=== PATIENT | female | born 1980 | race Caucasian/White ===

== ENCOUNTER 2017-02-25 04:46 | Observation (INO) ==
--- NOTE | 2017-02-25 05:11 | Emergency Department Note ---
Disposition Clinical Impression: CHF (congestive heart failure) Qualifiers: Congestive heart failure type: unspecified Congestive heart failure chronicity : acute on chronic Qualified Code(s): I50.9 - Heart failure, unspecified Disposition: Admitted As Inpatient Condition: Fair Referrals: NONE,PCP [Primary Care Provider] - Forms: ED Satisfaction Letter, Work/School Release Time of Disposition: 06:17 General Adult HPI - General Chief complaint: ED General Medical Stated complaint: sob,nausea,abdominal pain Time Seen by Provider: 02/25/17 04:55 Source: patient Limitations: no limitations Nursing Notes Reviewed: Yes Vital Signs Reviewed: Yes - History of Present Illness HPI Narrative: Alert and oriented nontoxic-appearing 36-year-old female with a history of hypertension and congestive heart failure presents for multiple complaints. She complains of gradually increasing shortness of breath, right flank/right lateral and anterior rib cage pain, and nausea and vomiting up until 2 days ago. She denies any fever, chills, chest pain, pain with inspiration, hemoptysis, urinary symptoms. She does complain of progressively worsening bilateral lower extremity edema. She does complain of increasing orthopnea as well. Onset (ago): week(s) (2) Location: chest, abdomen Pain Severity: moderate Pain Scale: 4 Quality: aching Consistency: now resolved Improves with: nothing Worsens with: nothing Associated symptoms: Reports: nausea/vomiting. Denies: chest pain, cough, diaphoresis, fever/chills, syncope, weakness Treatments Prior to Arrival: none - Related Data Home Medications Medication Instructions Recorded Confirmed Ibuprofen [Motrin] 400 - 600 mg PO HS PRN 11/06/15 11/06/15 Previous Rx's Medication Instructions Recorded Acetaminophen [Tylenol] 650 mg PO Q6HR PRN #0 tablet 11/15/15 Lisinopril [Zestril] 40 mg PO DAILY #30 tablet 11/15/15 amLODIPine [Norvasc] 10 mg PO DAILY #30 tablet 11/15/15 Allergies Allergy/AdvReac Type Severity Reaction Status Date / Time No Known Allergies Allergy Verified 11/06/15 08:45 All systems ED: reviewed and negative except as stated. Constitutional: Denies: fever, chills, weakness, weight change Eyes: Denies: eye pain, eye discharge, vision change ENT ED: Denies: ear pain, throat pain, dental pain, hearing loss, epistaxis, congestion, dysphagia Cardiovascular: Reports: as per HPI, edema. Denies: chest pain, palpitations, dyspnea on exertion, syncope Respiratory: Reports: as per HPI, dyspnea. Denies: cough, wheezes, hemoptysis, stridor, sputum production Gastrointestinal: Reports: as per HPI, abdominal pain, nausea, vomiting. Denies : diarrhea, constipation, hematemesis, melena, hematochezia Genitourinary: Denies: dysuria, frequency, hematuria, discharge Musculoskeletal: Denies: back pain, neck pain, arthralgia, myalgia Integumentary: Denies: rash, abrasion, lesions Neurological: Denies: headache, weakness, numbness, paresthesias, confusion, abnormal gait, vertigo Psychiatric: Denies: anxiety, depression, suicidal thoughts, homicidal thoughts , auditory hallucinations, visual hallucinations Endocrine: Denies: fatigue Hematological/Lymphatic: Denies: easy bleeding, easy bruising Allergic/Immunologic: Denies: facial swelling, urticaria Past Medical History - Past Medical History Attestation: Yes The following information was validated with the patient. Source: patient, nursing notes reviewed Medical history: Reports: CHF, hypertension Surgical history: Reports: non-contributory Psychiatric history: Reports: no psych history BANK TELLER history: Reports: bilateral tubal ligation - Social History Smoking Status: Never smoker Smokeless Tobacco Status: No Alcohol use: Reports: none Drug use: Reports: none Physical Exam - General Limitations: no limitations General appearance: alert, in no apparent distress - Head Head exam: atraumatic, normocephalic, normal inspection - Eye Eye exam: Present: normal appearance, PERRL, EOMI. Absent: nystagmus - ENT ENT exam: mucous membranes moist - Neck Neck exam: Present: normal inspection, full ROM, trachea midline. Absent: lymphadenopathy - Chest Chest inspection: Present: symmetric chest wall rise, tenderness (Tenderness with palpation of the right lateral and right anterior chest wall) - Respiratory Respiratory exam: Present: normal lung sounds bilaterally. Absent: respiratory distress, wheezes, stridor, accessory muscle use, prolonged expiratory phase - Cardiovascular Cardiovascular exam: Present: regular rate, normal rhythm, normal heart sounds - Abdominal Exam Abdominal exam: Present: soft, tenderness, normal bowel sounds. Absent: distention, guarding, rebound, rigidity Abdominal tenderness: Present: RUQ, epigastrium, mild - Extremities Exam Extremities exam: Present: full ROM, pedal edema (2+ pretibial edema noted bilaterally). 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 No fever/chills, URI symptoms or leg pain. No known HX of DVT or PE. Denies . No recent travel. Has had an intermittent dry cough without hemoptysis. On exam patient does not appear to be in distress and is able to speak in complete sentences. She has a diffuse, significant psoriatic appearing rash, 1+ non-pitting peripheral edema, coarse rhonchi in bilateral bases, distant heart sounds - unable to hear a murmur, obese non-tender abdomen, normal neuro exam. Labs show significant proteinuria, microscopic hematuria, but normal creatinine and GFR. CBC normal. Dimer very elevated, >1000, TNI mildly elevated 0.04, and BNP >700. Xray read not very helpful - possible artifact, possible infiltrate, definite CM. Appears unchanged compared to previous to vt. EKG shows sinus tach with non-specific ST and T wave changes. CTA ordered. CTA shows no PE. Patient's BP is slowly coming down - NTG paste and lasix were given. She has ambulated to and from restroom twice without assistance or complication. No c/o pain at this time. All questions answered. Case discussed with Dr. Middleton. He has examined the patient, reviewed the lab, ecg and cxr findings and agrees with the plan to do CTA and admit. Patient agreeable to stay. Home dose of Lisinopril ordered. Patient accepted by Hospitalist. Vital Signs Temperature 97.9 F 02/25/17 04:47 Pulse Rate 115 02/25/17 04:47 Respiratory Rate 24 02/25/17 04:47 Blood Pressure 214/148 02/25/17 04:47 O2 Sat by Pulse Oximetry 96 02/25/17 04:47 Temperature 97.9 F 02/25/17 04:47 Pulse Rate 109 02/25/17 07:00 Respiratory Rate 18 02/25/17 07:00 Blood Pressure 168/117 02/25/17 07:00 O2 Sat by Pulse Oximetry 97 02/25/17 07:00 Oxygen Delivery Oxygen Delivery Room Air Medical Decision Making - Medical Records Medical records reviewed: Yes I reviewed the patient's medical records. - Lab Data Result diagrams: 02/25/17 05:38 02/25/17 05:38 Lab Results 02/25/17 02/25/17 02/25/17 Range/Units 05:21 05:21 05:38 WBC 9.9 (4.3-11.1) K/mcL RBC 5.00 H (3.82-4.97) M/mcL Hgb 13.6 (11.5-15.4) g/dL Hct 42.5 (35.3-44.9) % MCV 85.0 (83.0-100.0) fL MCH 27.2 L (28.0-33.3) pg MCHC 32.0 (31.6-35.5) g/dL RDW 16.2 H (11.5-14.5) % Plt Count 307 (140-400) K/mcL MPV 11.2 (9.4-12.4) fL Immature Gran % 0.4 (0-4) % Seg Neutrophils % 75.6 % Lymphocytes % 17.8 % Monocytes % 5.5 % Eosinophils % 0.2 % Basophils % 0.5 % Neutrophils # 7.5 (1.6-8.9) K/mcL Lymphocytes # 1.8 (0.6-4.6) K/mcL Monocytes # 0.6 (0.0-1.3) K/mcL Eosinophils # 0.0 (0.0-0.6) K/mcL Basophils # 0.1 (0.0-0.2) K/mcL PT (9.4-12.1) Seconds INR APTT (26.0-36.0) Seconds D-Dimer (0-500) ng/mLFEU Sodium (136-145) mEq/L Potassium (3.5-5.1) mEq/L Chloride (98-107) mEq/L Carbon Dioxide (23-29) mEq/L BUN (6-20) mg/dL Creatinine (0.60-1.20) mg/dL Est GFR ( Amer) (> 60) Est GFR (Non-Af Amer) (> 60) BUN/Creatinine Ratio (6-26) Glucose (70-105) mg/dL Calculated Osmolality (280-300) Lactic Acid (0.5-2.2) mmol/L Calcium (8.6-10.3) mg/dL Total Bilirubin (0.3-1.0) mg/dL Direct Bilirubin (0.0-0.2) mg/dL Indirect Bilirubin (0.0-1.2) mg/dL AST (13-39) Units/L ALT (7-52) Units/L Alkaline Phosphatase (34-104) Units/L Troponin I (< 0.04) ng/mL B-Natriuretic Peptide (Less than 100) pg/mL Serum Total Protein (6.4-8.9) g/dL Albumin (3.5-5.7) g/dL Globulin (2.4-3.5) g/dL Albumin/Globulin Ratio (1.1-2.2) Amylase (29-103) Units/L Lipase (11-82) Units/L Urine Color Yellow (Yellow) Urine Clarity Slightly Hazy (Clear) Urine pH 6.0 (5.0-8.0) pH Units Ur Specific Blackwood > 1.030 H (1.010-1.025) Urine Protein >=1000 H (Neg-Trace) mg/dL Urine Glucose (UA) Normal (Normal) mg/dL Urine Ketones Negative (Negative) mg/dL Urine Blood Large H (Negative) Urine Nitrite Negative (Negative) Urine Bilirubin Negative (Negative) Urine Urobilinogen Normal (Normal) mg/dL Ur Leukocyte Esterase Negative (Negative) Urine Microscopic RBC 30-50 H (0-3) per hpf Urine Microscopic WBC 5-15 H (0-3) per hpf Ur Squamous Epith Cells Many H (None-Few) per lpf Urine Bacteria Few (None-Few) per hpf Hyaline Casts Moderate H (None-Few) per lpf Urine Mucus Few (Few) Ur Culture Indicated? NO (NO) Urine Test Negative (Negative) 02/25/17 02/25/17 02/25/17 Range/Units 05:38 05:38 05:38 WBC (4.3-11.1) K/mcL RBC (3.82-4.97) M/mcL Hgb (11.5-15.4) g/dL Hct (35.3-44.9) % MCV (83.0-100.0) fL MCH (28.0-33.3) pg MCHC (31.6-35.5) g/dL RDW (11.5-14.5) % Plt Count (140-400) K/mcL MPV (9.4-12.4) fL Immature Gran % (0-4) % Seg Neutrophils % % Lymphocytes % % Monocytes % % Eosinophils % % Basophils % % Neutrophils # (1.6-8.9) K/mcL Lymphocytes # (0.6-4.6) K/mcL Monocytes # (0.0-1.3) K/mcL Eosinophils # (0.0-0.6) K/mcL Basophils # (0.0-0.2) K/mcL PT 13.4 H (9.4-12.1) Seconds INR 1.2 APTT 28.4 (26.0-36.0) Seconds D-Dimer 1145 H (0-500) ng/mLFEU Sodium 136 (136-145) mEq/L Potassium 4.5 (3.5-5.1) mEq/L Chloride 105 (98-107) mEq/L Carbon Dioxide 21 L (23-29) mEq/L BUN 27 H (6-20) mg/dL Creatinine 0.93 (0.60-1.20) mg/dL Est GFR ( Amer) > 60 (> 60) Est GFR (Non-Af Amer) > 60 (> 60) BUN/Creatinine Ratio 29 H (6-26) Glucose 109 H (70-105) mg/dL Calculated Osmolality 288 (280-300) Lactic Acid 1.5 (0.5-2.2) mmol/L Calcium 9.6 (8.6-10.3) mg/dL Total Bilirubin 0.9 (0.3-1.0) mg/dL Direct Bilirubin 0.2 (0.0-0.2) mg/dL Indirect Bilirubin 0.7 (0.0-1.2) mg/dL AST 12 L (13-39) Units/L ALT 10 (7-52) Units/L Alkaline Phosphatase 83 (34-104) Units/L Troponin I (< 0.04) ng/mL B-Natriuretic Peptide (Less than 100) pg/mL Serum Total Protein 6.7 (6.4-8.9) g/dL Albumin 4.0 (3.5-5.7) g/dL Globulin 2.7 (2.4-3.5) g/dL Albumin/Globulin Ratio 1.5 (1.1-2.2) Amylase 17 L (29-103) Units/L Lipase 24 (11-82) Units/L Urine Color (Yellow) Urine Clarity (Clear) Urine pH (5.0-8.0) pH Units Ur Specific Blackwood (1.010-1.025) Urine Protein (Neg-Trace) mg/dL Urine Glucose (UA) (Normal) mg/dL Urine Ketones (Negative) mg/dL Urine Blood (Negative) Urine Nitrite (Negative) Urine Bilirubin (Negative) Urine Urobilinogen (Normal) mg/dL Ur Leukocyte Esterase (Negative) Urine Microscopic RBC (0-3) per hpf Urine Microscopic WBC (0-3) per hpf Ur Squamous Epith Cells (None-Few) per lpf Urine Bacteria (None-Few) per hpf Hyaline Casts (None-Few) per lpf Urine Mucus (Few) Ur Culture Indicated? (NO) Urine Test (Negative) 02/25/17 02/25/17 Range/Units 05:38 05:38 WBC (4.3-11.1) K/mcL RBC (3.82-4.97) M/mcL Hgb (11.5-15.4) g/dL Hct (35.3-44.9) % MCV (83.0-100.0) fL MCH (28.0-33.3) pg MCHC (31.6-35.5) g/dL RDW (11.5-14.5) % Plt Count (140-400) K/mcL MPV (9.4-12.4) fL Immature Gran % (0-4) % Seg Neutrophils % % Lymphocytes % % Monocytes % % Eosinophils % % Basophils % % Neutrophils # (1.6-8.9) K/mcL Lymphocytes # (0.6-4.6) K/mcL Monocytes # (0.0-1.3) K/mcL Eosinophils # (0.0-0.6) K/mcL Basophils # (0.0-0.2) K/mcL PT (9.4-12.1) Seconds INR APTT (26.0-36.0) Seconds D-Dimer (0-500) ng/mLFEU Sodium (136-145) mEq/L Potassium (3.5-5.1) mEq/L Chloride (98-107) mEq/L Carbon Dioxide (23-29) mEq/L BUN (6-20) mg/dL Creatinine (0.60-1.20) mg/dL Est GFR ( Amer) (> 60) Est GFR (Non-Af Amer) (> 60) BUN/Creatinine Ratio (6-26) Glucose (70-105) mg/dL Calculated Osmolality (280-300) Lactic Acid (0.5-2.2) mmol/L Calcium (8.6-10.3) mg/dL Total Bilirubin (0.3-1.0) mg/dL Direct Bilirubin (0.0-0.2) mg/dL Indirect Bilirubin (0.0-1.2) mg/dL AST (13-39) Units/L ALT (7-52) Units/L Alkaline Phosphatase (34-104) Units/L Troponin I 0.04 H* (< 0.04) ng/mL B-Natriuretic Peptide 773 H (Less than 100) pg/mL Serum Total Protein (6.4-8.9) g/dL Albumin (3.5-5.7) g/dL Globulin (2.4-3.5) g/dL Albumin/Globulin Ratio (1.1-2.2) Amylase (29-103) Units/L Lipase (11-82) Units/L Urine Color (Yellow) Urine Clarity (Clear) Urine pH (5.0-8.0) pH Units Ur Specific [place]wood (1.010-1.025) Urine Protein (Neg-Trace) mg/dL Urine Glucose (UA) (Normal) mg/dL Urine Ketones (Negative) mg/dL Urine Blood (Negative) Urine Nitrite (Negative) Urine Bilirubin (Negative) Urine Urobilinogen (Normal) mg/dL Ur Leukocyte Esterase (Negative) Urine Microscopic RBC (0-3) per hpf Urine Microscopic WBC (0-3) per hpf Ur Squamous Epith Cells (None-Few) per lpf Urine Bacteria (None-Few) per hpf Hyaline Casts (None-Few) per lpf Urine Mucus (Few) Ur Culture Indicated? (NO) Urine Test (Negative) S.B.A.R. - S.B.A.R. Situation: Demographics, MOA Background: Presenting Complaint, Relevant PMH, Meds, & Allergies Assessment: Vital Signs, Course and respsone to treatment, Exam Concerns, Patient/Family Expectation, Pertinant Lab Results, Outstanding Labs Recommendation: Recommendation based on pending studies, treatments, or consults S.B.A.R. Report Given to: Katie Narvaez PA-C [email or web address] Time: 06:17 Attestation Statement - Attestation Attestation: I, Colin Middleton MD, personally evaluated this patient and discussed their management with the midlevel provicer, PAC/YARN CARRIER. I reviewed the midlevel provider 's note and agree with the documented findings, medical decision making, and plan of care. 36-year-old female with history of CHF presents to the emergency department complaining of increasing shortness of breath for the past several days. Also increasing edema. No chest pain. No cough or fever. She has had some chest wall pain and some abdominal pain. Some nausea and vomiting. On examination patient is a well-developed obese female in no acute distress. She is alert and oriented 3. There is no cyanosis or diaphoresis. Chest is nontender to palpation. Breath sounds are equal bilaterally with a few bibasilar rales. No wheezes noted. Heart regular rate and rhythm. Abdomen is soft and nontender with normal bowel sounds. Trace pedal edema. Labs reviewed. Elevated d-dimer. Troponin 0.04. EKG shows a sinus tachycardia with no acute ischemic changes noted. Chest x-ray shows left basilar atelectasis or pneumonia versus artifact. CTA of the lungs was obtained. Plan is to consult the hospitalist for admission.
[2017-02-25 05:34] LABS: Bilirubin,Urine Negative (Negative); Blood,Urine Large (Negative); Color,Urine Yellow (Yellow); Glucose,Urine (UA) Normal (Normal); Ketones,Urine Negative (Negative); Leukocyte Esterase,Urine Negative (Negative); Nitrite,Urine Negative (Negative); Protein,Urine >=1000 mg/dL (Neg-Trace); Specific Gravity,Urine > 1.030 (1.010-1.025); Urobilinogen,Urine Normal (Normal)
[2017-02-25 05:37] LABS: Clarity,Urine Slightly Hazy (Clear); Hyaline Casts,Urine Moderate per lpf (None-Few); RBC,Urine 30-50 per hpf (0-3); Squamous Epithelial Cell,Urine Many per lpf (None-Few)
[2017-02-25 05:50] LABS: Bacteria,Urine Few per hpf (None-Few); Mucus,Urine Few (Few)
[2017-02-25 05:52] LABS: Eosinophils % 0.2 %; Hematocrit 42.5 % (35.3-44.9); Hemoglobin 13.6 g/dL (11.5-15.4); Immature Granulocytes % 0.4 % (0-4); Lymphocytes % 17.8 %; Mean Corpuscular Hemoglobin 27.2 pg (28.0-33.3); Mean Platelet Volume 11.2 fL (9.4-12.4); Monocytes % 5.5 %; Platelet Count 307 K/mcL (140-400); Red Cell Distribution Width 16.2 % (11.5-14.5); Segmented Neutrophils % 75.6 %
[2017-02-25 05:53] LABS: Basophils # 0.1 K/mcL (0.0-0.2); Basophils % 0.5 %; Lymphocytes # 1.8 K/mcL (0.6-4.6); Monocytes # 0.6 K/mcL (0.0-1.3); Neutrophils # 7.5 K/mcL (1.6-8.9)
[2017-02-25 05:59] LABS: INR 1.2; Prothrombin Time 13.4 Seconds (9.4-12.1)
[2017-02-25 06:01] LABS: Activated Partial Thrombo Time 28.4 Seconds (26.0-36.0)
[2017-02-25] MEDS ORDERED: Aspirin 81 MG TAB.CHEW PO ONE (06:12)
[2017-02-25] MEDS ORDERED: Furosemide 40 MG/4 ML VIAL IVP ONE (06:12)
[2017-02-25] MEDS ORDERED: Nitroglycerin 1 INCH/GM PACKET TP ONE (06:12)
[2017-02-25 06:25] LABS: Alanine Aminotransferase 10 Units/L (7-52); Albumin/Globulin Ratio 1.5 (1.1-2.2); Alkaline Phosphatase 83 Units/L (34-104); Amylase 17 Units/L (29-103); Aspartate Amino Transferase 12 Units/L (13-39); BUN/Creatinine Ratio 29 (6-26); Bilirubin,Direct 0.2 mg/dL (0.0-0.2); Bilirubin,Indirect 0.7 mg/dL (0.0-1.2); Bilirubin,Total 0.9 mg/dL (0.3-1.0); Blood Urea Nitrogen 27 mg/dL (6-20); Calcium 9.6 mg/dL (8.6-10.3); Carbon Dioxide 21 mEq/L (23-29); Chloride 105 mEq/L (98-107); Globulin 2.7 g/dL (2.4-3.5); Glucose 109 mg/dL (70-105); Lipase 24 Units/L (11-82); Osmolality,Calculated 288 (280-300); Potassium 4.5 mEq/L (3.5-5.1); Sodium 136 mEq/L (136-145); Total Protein 6.7 g/dL (6.4-8.9); eGFR For African Americans > 60 (> 60); eGFR For Non-African Americans > 60 (> 60)
[2017-02-25] MEDS ORDERED: Ondansetron 4 MG/2 ML VIAL IVP ONE (06:32)
[2017-02-25] MEDS ORDERED: Ondansetron 4 MG/2 ML VIAL ONE (06:33)
[2017-02-25] MEDS: Lisinopril 20 MG TABLET PO ONE ×2 (08:00→09:49)
--- NOTE | 2017-02-25 08:17 | Internal Med History&Physical ---
Date of Encounter: 02/25/17 Time of Encounter: 08:15 Assessment and Plan (1) Hypertensive urgency Current visit: Yes Status: Acute Patient is not compatible with her medications. Start the patient IV Lasix, lisinopril 40 mg daily and metoprolol 12.5 mg twice daily in addition to imdur 30 mg daily. Will also give hydralazine PRN. (2) Elevated troponin Current visit: Yes Status: Acute Due to demand ischemia severe hypertension. Patient had a prior coronary angiogram according to her showed no occlusive disease. (3) CHF (congestive heart failure) Current visit: No Status: Chronic Due to non-ischemic cardiomyopathy. Will start bri Lasix. Will also administer damon inhibitor beta dominic. Qualifiers: Qualified Code(s): I50.9 - Heart failure, unspecified (4) Flank pain Current visit: Yes Status: Acute Patient is complaining of abdominal and flank pain. Which in the setting of severe hypertension makes me want to rule out aortic dissection. However patient had received a contrast load to r/o PE which was a dedicated study for pulmonary embolism but not for dissection. For that reason I would ask for cardiology input to see if they would like to further investigate this flank pain. Urinalysis has some pus cells but also to contact nominated sample. check urine culture. Her abdomen is benign on exam no focal tenderness or rebound tenderness. Internal Medicine - H&P: HPI Chief complaint: sob and abdominal pain History of present illness: Ms. Roy is a 36 year old female with history of non-ischemic dilated cardiomyopathy presents the emergency room today with the main complaint shortness of breath and abdominal pain. Over the past week patient has been noticing progressive shortness of breath with exertion associated with slight swelling of lower extremities and difficulty sleeping at night when she lay flat. Patient has not been compliant with her heart failure medications. Patient has also been complaining of upper abdominal pain as well as flank pain. No clear relation to meals. She denies any diarrhea. No nausea vomiting. No fevers or chills. No sputum production. On arrival to the emergency room she was severely hypertensive. Past Med Surg Social Fam HX - Past Medical History Medical history: CHF, hypertension Psychiatric history: no psych history - Past Surgical History Surgical History: non-contributory - Social History Smoking Status: Never smoker Smokeless Tobacco Status: No Alcohol use: none Drug use: none - Family History Mother Living Status: Father Living Status: Internal Medicine - H&P: Meds Ibuprofen [Motrin] 400 - 600 mg PO HS PRN 11/06/15 [History] Acetaminophen [Tylenol] 650 mg PO Q6HR PRN #0 tablet 11/15/15 [Rx] Lisinopril [Zestril] 40 mg PO DAILY #30 tablet 11/15/15 [Rx] amLODIPine [Norvasc] 10 mg PO DAILY #30 tablet 11/15/15 [Rx] 3 Allergy/AdvReac Type Severity Reaction Status Date / Time No Known Allergies Allergy Verified 11/06/15 08:45 All Systems PM: A 10-system review of systems was performed and is negative for pertinent findings except as documented above in the HPI. Review of systems: 10 point review of systems is negative except for HPI - Constitutional Vitals: Temp Pulse Resp BP Pulse Ox 97.9 F 98 18 147/111 94 02/25/17 04:47 02/25/17 08:05 02/25/17 08:05 02/25/17 08:05 02/25/17 08:05 Exam: Gen.: patient is alert oriented times 3 not in distress. Cardiac: normal S1 S2 no additional sounds are murmurs. Chest: clear to auscultation. Abdomen: soft nontender nondistended. Lower extremity no swelling mucous membranes: moist skin: psoriatic changes Internal Med - H&P Results - Labs CBC & Chem 7: 02/25/17 05:38 02/25/17 05:38
[2017-02-25] MEDS ORDERED: amLODIPine 5 MG TABLET PO SCH (09:00)
[2017-02-25] MEDS: Aspirin 81 MG TAB.CHEW PO SCH (09:07)
[2017-02-25] MEDS: Famotidine 20 MG TABLET PO SCH ×2 (09:07→20:02)
[2017-02-25] MEDS: Isosorbide MONOnitrate (24 HR) 30 MG TAB.ER.24H PO SCH (09:07)
[2017-02-25] MEDS: Furosemide 40 MG/4 ML VIAL IVP SCH (09:48)
[2017-02-25] MEDS: Lisinopril 20 MG TABLET PO SCH (09:49)
[2017-02-25] MEDS ORDERED: Acetaminophen 325 MG TABLET PO PRN (11:21)
--- NOTE | 2017-02-25 11:47 | Event Note ---
Date of Encounter: 02/25/17 Time of Encounter: 11:45 - Cardiology Event Note 36yoF with normal renal function. Received 70cc contrast for CT ruleout PE. If there is concern for dissection because of ongoing symptoms, recommend IV hydration with NS 50 cc/hr x 8 hours and can proceed with CTA.
[2017-02-25] MEDS: *HR* Heparin 5,000 UNIT/ML VIAL SQ SCH ×2 (14:23→20:02)
[2017-02-25] MEDS ORDERED: 0.9 % Sodium Chloride 1,000 ML IVC SCH (17:30)
[2017-02-26 03:39] LABS: Basophils # 0.1 K/mcL (0.0-0.2); Basophils % 0.5 %; Eosinophils # 0.1 K/mcL (0.0-0.6); Eosinophils % 1.3 %; Hematocrit 40.3 % (35.3-44.9); Hemoglobin 12.6 g/dL (11.5-15.4); Immature Granulocytes % 0.3 % (0-4); Lymphocytes # 1.7 K/mcL (0.6-4.6); Lymphocytes % 16.9 %; Mean Corpuscular HGB Conc 31.3 g/dL (31.6-35.5); Mean Corpuscular Hemoglobin 27.3 pg (28.0-33.3); Mean Corpuscular Volume 87.4 fL (83.0-100.0); Mean Platelet Volume 11.6 fL (9.4-12.4); Monocytes # 0.7 K/mcL (0.0-1.3); Monocytes % 7.3 %; Neutrophils # 7.4 K/mcL (1.6-8.9); Platelet Count 265 K/mcL (140-400); Red Blood Count 4.61 M/mcL (3.82-4.97); Red Cell Distribution Width 16.2 % (11.5-14.5); Segmented Neutrophils % 73.7 %
[2017-02-26 04:07] LABS: BUN/Creatinine Ratio 27 (6-26); Blood Urea Nitrogen 24 mg/dL (6-20); Calcium 8.8 mg/dL (8.6-10.3); Carbon Dioxide 23 mEq/L (23-29); Chloride 106 mEq/L (98-107); Glucose 94 mg/dL (70-105); Magnesium 1.8 mg/dL (1.6-2.6); Osmolality,Calculated 290 (280-300); Potassium 4.2 mEq/L (3.5-5.1); Sodium 138 mEq/L (136-145); eGFR For African Americans > 60 (> 60); eGFR For Non-African Americans > 60 (> 60)
[2017-02-26] MEDS: *HR* Heparin 5,000 UNIT/ML VIAL SQ SCH (05:31)
[2017-02-26 07:49] VITALS: BP 159/107
[2017-02-26] MEDS: Famotidine 20 MG TABLET PO SCH (08:08)
[2017-02-26] MEDS: Lisinopril 20 MG TABLET PO SCH (08:08)
[2017-02-26] MEDS: Isosorbide MONOnitrate (24 HR) 30 MG TAB.ER.24H PO SCH (08:08)
[2017-02-26] MEDS: Furosemide 40 MG/4 ML VIAL IVP SCH (08:08)
[2017-02-26] MEDS: Aspirin 81 MG TAB.CHEW PO SCH (08:08)
--- NOTE | 2017-02-26 10:35 | Discharge Summary ---
Date of Encounter: 03/04/17 Time of Encounter: 10:29 - Discharge Diagnosis (1) Hypertensive urgency Priority: Primary Status: Acute (2) HTN (hypertension) Priority: Secondary Status: Chronic Qualifiers: Hypertension type: essential hypertension Qualified Code(s): I10 - Essential (primary) hypertension (3) Obesity (BMI 30-39.9) Priority: Secondary Status: Acute (4) Elevated troponin Priority: Primary Status: Acute (5) Flank pain Priority: Primary Status: Acute - Discharge Medications Prescriptions: Aspirin 81 mg PO DAILY #30 tab.chew Atorvastatin [Lipitor] 10 mg PO HS #30 tablet Metoprolol [Lopressor] 12.5 mg PO BID #60 tablet Home Medications: Acetaminophen [Tylenol] 650 mg PO Q6HR PRN #0 tablet 11/15/15 [Rx] Lisinopril [Zestril] 40 mg PO DAILY #30 tablet 11/15/15 [Rx] amLODIPine [Norvasc] 10 mg PO DAILY #30 tablet 11/15/15 [Rx] Aspirin 81 mg PO DAILY #30 tab.chew 02/26/17 [Rx] Atorvastatin [Lipitor] 10 mg PO HS #30 tablet 02/26/17 [Rx] Metoprolol [Lopressor] 12.5 mg PO BID #60 tablet 02/26/17 [Rx] Allergies/Adverse Reactions: 3 Allergy/AdvReac Type Severity Reaction Status Date / Time No Known Allergies Allergy Verified 11/06/15 08:45 Procedures/tests Complete & Pending: Procedures Performed prior 72 hours Category Date Time Status EV echocardiogram Stat Y 02/25/17 08:04 Completed Date of admission: 02/25/17 08:02 Primary care physician: PCP NONE Discharging clinician: Ace Aquino - Patient Status Disposition: Home, Self-Care Condition: Fair Functional capacity at discharge: independent ambulation Overall status at discharge: patient is progressing back to baseline - Discharge Instructions Instructions: Heart Failure (DC), Diverticulitis (DC), Chronic Hypertension (DC ) Follow Up With: NONE,PCP [Primary Care Provider] - James Delaney DO [Resident] - - Diet and Activity Activity: increase activity as tolerated Diet: low fat, low cholesterol, low salt diet Interval History: Ms. Roy is a 36 year old female with history of non-ischemic dilated cardiomyopathy presents the emergency room today with the main complaint shortness of breath and abdominal pain. Over the past week patient has been noticing progressive shortness of breath with exertion associated with slight swelling of lower extremities and difficulty sleeping at night when she lay flat. Patient has not been compliant with her heart failure medications. Patient has also been complaining of upper abdominal pain as well as flank pain. No clear relation to meals. She denies any diarrhea. No nausea vomiting. No fevers or chills. No sputum production. On arrival to the emergency room she was severely hypertensive. Hospital course: Patient was hospitalized. Initially there was a concern of her aortic dissection. Cardiology was called by admitting provider. Patient denies any further pain and that was the reason further imaging was canceled. Patient was treated with her home medication and metoprolol was added. Her blood pressure was very well under control. I discussed this case this morning with underwear cutter financial planning consultant. Patient had a cardiac catheterization in 2013 were the ejection fraction was 15%. This was not ischemic cardiomyopathy. Echocardiogram done this morning. Ejection fraction is suggestive of 30-35%. Plan: Will send patient home on aspirin 81 mg/metoprolol 12.5 mg twice a day/Lipitor 10 mg in the night. Patient will follow up with PCP in 1-2 weeks. Patient will follow up with cardiology in 1-2 weeks. All questions answered. Elevated troponin is likely secondary to demand ischemia. - Time Spent with Patient Total time spent providing and/or coordinating discharge services: - Constitutional Vitals: Temp Pulse Resp BP Pulse Ox 98.2 F 89 16 159/107 98 02/26/17 07:43 02/26/17 07:43 02/26/17 07:43 02/26/17 07:43 02/26/17 07:43 General appearance: Present: A&O X 3, pleasant, no acute distress, answers questions appropriately - Head Head exam: Present: atraumatic, normocephalic - Eye Eye exam: Present: PERRL, conjuntiva pink, sclera anicteric Pupils: Present: PERRL - Neck Neck exam general surgery: Present: supple, trachea midline. Absent: lymphadenopathy - Respiratory Respiratory exam: Present: CTAB. Absent: accessory muscle use, rales, rhonchi, wheezes - Cardiovascular Cardiovascular exam: Present: RRR, +S1, +S2. Absent: diastolic murmur, gallop, rubs, systolic murmur - GI/Abdominal GI/Abdominal exam: Present: normal bowel sounds, soft, no peritoneal signs. Absent: distended, tenderness - Extremities Exam Extremities exam: Present: warm, radial pulses palpable and symmetrical. Absent : calf tenderness, cyanotic, pedal edema - Neurological Exam Neurological exam: Present: CN II-XII intact, oriented X3, no focal deficits. Absent: pronater drift, facial droop, speech deficit - Skin Skin exam: Present: dry, intact
--- NOTE | 2017-02-27 13:32 | Electrocardiograph Report ---
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
== END 2017-02-26 11:45 | disposition home or self-care (01) ==
LOC: 3BNU 04:46 → EMEROO 04:46 → 3BNU 08:22
PROVIDERS: ADMIT Hospitalist; ATTEND Registered Nurse